=== PATIENT | female | born 1995 | race Caucasian/White ===

== ENCOUNTER 2017-03-18 17:28 | Emergency (ER) | payer OTHER ==
[~2017-03-18] VITALS: Ht 160 cm; Wt 62.6 kg
[~2017-03-18 17:28] MED LIST: INSU100I31 SQ; NOVO3I SC
[2017-03-18 17:30] VITALS: Ht 160 cm; Wt 62.6 kg
[2017-03-18 18:39] LABS: ADD UMIC YES; UR ASCORBIC ACID NEGATIVE (NEGATIVE); UR BACTERIA FEW /HPF (NONE SEEN); UR BILIRUBIN (Dip) NEGATIVE (NEGATIVE); UR BLOOD (Dip) 3+ mg/dL (NEGATIVE); UR CLARITY SLIGHTLY CLOUDY (CLEAR); UR COLOR YELLOW (YELLOW); UR GLUCOSE (Dip) 3+ mg/dL (NEGATIVE); UR KETONES (Dip) 2+ mg/dL (NEGATIVE); UR LEUKOCYTE ESTERASE (Dip) 1+ Leu/ul (NEGATIVE); UR MUCUS FEW /HPF (NONE SEEN); UR NITRITE (Dip) NEGATIVE (NEGATIVE); UR RBC > 182 /HPF (0-5); UR SPECIFIC GRAVITY (Dip) 1.037 (1.003-1.030); UR SQUAMOUS EPITHELIAL CELL FEW /HPF (FEW); UR TOTAL PROTEIN (Dip) 1+ mg/dl (NEGATIVE); UR UROBILINOGEN (Dip) NEGATIVE (NEGATIVE)
[2017-03-18 19:39] LABS: BASOPHILS % 0.2 % (0.0-2.0); EOSINOPHILS % 0.1 % (0.0-7.0); HEMOGLOBIN 13.4 g/dl (12.0-16.0); LYMPHOCYTES # 1.7 10^3/ul (0.8-2.9); MEAN CORPUSCULAR HEMOGLOBIN 28.8 pg (29.0-33.0); MEAN CORPUSCULAR HGB CONC 33.5 g/dl (32.0-37.0); MEAN PLATELET VOLUME 11.2 fl (7.4-10.4); MONOCYTE # 0.7 10^3/ul (0.3-0.9); MONOCYTES % 5.9 % (0.0-11.0); NEUTROPHIL # 9.6 10^3/ul (1.6-7.5); NEUTROPHILS % 79.4 % (39.0-77.0); PLATELET COUNT 294 10^3/UL (140-415); RED BLOOD COUNT 4.65 10^6/ul (4.20-5.40); RED CELL DISTRIBUTION WIDTH 12.1 % (11.5-14.5); WHITE BLOOD COUNT 12.1 10^3/ul (4.8-10.8)
--- NOTE | 2017-03-18 19:50 | ERD ---
ER Documentation Chief Complaint Date/Time DATE: 03/18/17 TIME: 19:48 Chief Complaint DYSURIA HPI Patient is a 21-year-old female who is diabetic type I who presents to the ED with dysuria and hematuria since this morning. Denies abdominal pain, nausea, vomiting or diarrhea. Patient uses an insulin pen and does not have a pump. She states that she gave herself insulin this morning. Patient did have lunch. Denies headache or dizziness. Her only complaint is her dysuria and urgency and hematuria. Denies back pain. Denies fever or chills. Patient does have a history of DKA, last episode was May 2016 and patient was admitted. No other complaints. ROS All systems reviewed and are negative except as per history of present illness. Medications Home Meds Active Scripts Nitrofurantoin Monohyd Macrocr* (Macrobid*) 100 Mg Capsr, 100 MG PO BID for 7 Days, CAP Prov:CLAUDE MENDEZ PA-C 03/18/17 Insulin Aspart* (Novolog Insulin Pen*) 100 Unit/Ml Soln, 12 UNIT SC WITH MEALS for 30 Days, #4 SYR 3 Refills Prov:OSCAR HUTCHINS MD 06/06/16 Insulin Degludec (Tresiba Flextouch U-100) 100 Unit/1 Ml Insuln.pen, 24 UNIT SQ QHS for 30 Days, #3 SYR 3 Refills Prov:OSCAR HUTCHINS MD 06/06/16 Allergies Allergies: Coded Allergies: No Known Allergy (Unverified , 03/18/17) PMhx/Soc History of Surgery: Yes (appendectomy at 10yo) Anesthesia Reaction: No Hx Neurological Disorder: No Hx Respiratory Disorders: No Hx Cardiac Disorders: No Hx Psychiatric Problems: No Hx Miscellaneous Medical Probl: No Hx Alcohol Use: Yes (3x per year) Hx Substance Use: Yes (marijuana) Hx Tobacco Use: No Smoking Status: Never smoker FmHx Family History: No coronary disease, No diabetes, No other Physical Exam Vitals Vital Signs Date Time Temp Pulse Resp B/P Pulse Ox O2 Delivery O2 Flow Rate FiO2 03/18/17 17:30 98.9 110 24 119/70 99 Physical Exam GENERAL: Well-developed, well-nourished female Appears in no acute distress. HEAD: Normocephalic, atraumatic. EYES: Pupils are equally reactive bilaterally. EOMs grossly intact. No conjunctival erythema. ENT: Moist mucous membranes. No uvula deviation. No kissing tonsils. No exudates. NECK: Supple. No lymphadenopathy or thyromegaly. No meningismus. negative kernig. negative brudinski. LUNG: Clear to auscultation bilaterally. No rhonchi, wheezing, rales or coarse breath sounds. HEART: Regular rate and rhythm. No murmurs, rubs or gallops. ABDOMEN: No scars, ecchymosis or rashes noted. Soft, nontender, and nondistended. Positive bowel sounds in all four quadrants. No rebound tenderness , no guarding. (-) McBurneys point tenderness. No CVA tenderness. BACK: No midline tenderness. Extremities: Equal pulses bilaterally. No peripheral clubbing, cyanosis or edema. No unilateral leg swelling. NEUROLOGIC: Alert and oriented. Moving all four extremities. 5/5 strength in all extremities. Normal speech. Steady gait. SKIN: Normal color. Warm and dry. No rashes or lesions. Capillary refill < 2 seconds Result Diagram: 03/18/17191403/18/171914 Results 24 hrs Laboratory Tests Test 03/18/17 16:10 03/18/17 19:07 03/18/17 19:15 Urine Color YELLOW Urine Clarity SLIGHTLY CLOUDY Urine pH 6.0 Urine Specific [place] 1.037 Urine Ketones 2+mg/dL Urine Nitrite NEGATIVEmg/dL Urine Bilirubin NEGATIVEmg/dL Urine Urobilinogen NEGATIVEmg/dL Urine Leukocyte Esterase 1+Mallika/ul Urine Microscopic RBC > 182/HPF Urine Microscopic WBC 45/HPF Urine Squamous Epithelial Cells FEW/HPF Urine Bacteria FEW/HPF Urine Mucus FEW/HPF Urine Hemoglobin 3+mg/dL Urine Glucose 3+mg/dL Urine Total Protein 1+mg/dl Bedside Glucose 322mg/dL White Blood Count 12.110^3/ul Red Blood Count 4.6510^6/ul Hemoglobin 13.4g/dl Hematocrit 40.0% Mean Corpuscular Volume 86.0fl Mean Corpuscular Hemoglobin 28.8pg Mean Corpuscular Hemoglobin Concent 33.5g/dl Red Cell Distribution Width 12.1% Platelet Count 50238^3/UL Mean Platelet Volume 11.2fl Neutrophils % 79.4% Lymphocytes % 14.0% Monocytes % 5.9% Eosinophils % 0.1% Basophils % 0.2% Nucleated Red Blood Cells % 0.0/100WBC Neutrophils # 9.610^3/ul Lymphocytes # 1.710^3/ul Monocytes # 0.710^3/ul Eosinophils # 0.010^3/ul Basophils # 0.010^3/ul Nucleated Red Blood Cells # 0.010^3/ul Sodium Level 136mmol/L Potassium Level 3.3mmol/L Chloride Level 102mmol/L Carbon Dioxide Level 25mmol/L Anion Gap 12 Blood Urea Nitrogen 11mg/dl Creatinine 0.47mg/dl Glucose Level 323mg/dl Calcium Level 9.1mg/dl Procedures/MDM ER COURSE: I kept the patient and/or family informed of laboratory and diagnostic imaging results throughout the emergency room course. MEDICAL DECISION MAKING: This is a 21 year old female who presents with dysuria and hematuria and urgency since this morning. Vital signs were reviewed. Patient is afebrile. Patient is not hypoxic. Patient is not toxic or ill-appearing. Her urinalysis shows leukocytes however she does have 2+ ketones and 3+ glucose. Therefore an Accu-Chek was done with a sugar of 322. CBC and BMP were ordered. CBC within normal limits BMP does not show signs of acidosis. Carbon dioxide and anion gap within normal limits. I consulted with my supervising physician Dr. harris agrees with my medical decision making and discharge plans. Patient is stable for outpatient therapy low suspicion for DKA, HON K. Patient is not toxic or ill-appearing. Patient does not have abdominal pain, nausea, vomiting. I will be treating the patient for cystitis with Macrobid outpatient. Low suspicion for pyelonephritis, septic or obstructive stone. Patient does not show signs of dehydration. DISCHARGE: At this time, patient is stable for discharge and outpatient management with no new complaints during the ER course. Patient was sent home with Macrobid patient will be discharged home with instructions to recheck for new or worsening symptoms such as fever, nausea, weakness, LOC and to follow up with primary care in the next 1-2 days. Patient was advised to return to the ER for any new or worsening symptoms. Plan was discussed and patient and/or family understands and agrees. Home instructions were given. Departure Diagnosis: Primary Impression: Cystitis Condition: Stable CLAUDE MENDEZ PA-C Mar 18, 2017 19:50
[2017-03-18] MEDS ORDERED: NITR-58 PO (20:01)
[2017-03-18 20:19] LABS: CALCIUM 9.1 mg/dl (8.4-10.2); CREATININE 0.47 mg/dl (0.44-1.00); POTASSIUM 3.3 mmol/L (3.5-5.1)
[2017-03-18 20:39] VITALS: BP 116/68; PULSE 66; RESP 22; TEMP 98.9
== END 2017-03-18 20:41 | disposition home or self-care (01) ==
LOC: FTE 17:28
DX: N30.90 Cystitis, unspecified without hematuria (principal); E10.9 Type 1 diabetes mellitus without complications; Z79.4 Long term (current) use of insulin
CPT/HCPCS: 36415; 80048; 81001; 82962; 85025; 99283

== ENCOUNTER 2017-05-24 17:35 | Emergency (ER) | payer OTHER ==
[~2017-05-24] VITALS: Wt 60.0 kg
[~2017-05-24 17:35] MED LIST changes: +NITR-58 PO
[2017-05-24] MEDS ORDERED: SOD CHLORIDE 0.9% 500 ML IV STA (21:11)
[2017-05-24 21:15] LABS: URINE BLOOD (Dip) POC Negative (NEGATIVE)
--- NOTE | 2017-05-24 21:20 | ERD ---
ER Documentation Chief Complaint Chief Complaint PALPITATIONS, SOB, ONSET 3 WEEKS, HX OF IDDM, NO CP HPI 21-year-old female presents for palpitations on and off for the last 2 weeks. She has a type I diabetic. Is also had shortness of breath but denies any chest pain. Has no history of cardiac problems. She is also somewhat lightheaded. ROS All systems reviewed and are negative except as per history of present illness. Medications Home Meds Active Scripts Alprazolam* (Xanax*) 0.25 Mg Tablet, 0.25 MG PO Q8H Y for ANXIETY, #7 TAB Prov:KIRILL RODRIGUEZ DO 05/25/17 Nitrofurantoin Monohyd Macrocr* (Macrobid*) 100 Mg Capsr, 100 MG PO BID for 7 Days, CAP Prov:CLAUDE MENDEZ PA-C 03/18/17 Insulin Aspart* (Novolog Insulin Pen*) 100 Unit/Ml Soln, 12 UNIT SC WITH MEALS for 30 Days, #4 SYR 3 Refills Prov:OSCAR HUTCHINS MD 06/06/16 Insulin Degludec (Tresiba Flextouch U-100) 100 Unit/1 Ml Insuln.pen, 24 UNIT SQ QHS for 30 Days, #3 SYR 3 Refills Prov:OSCAR HUTCHINS MD 06/06/16 Allergies Allergies: Coded Allergies: No Known Allergy (Unverified , 03/18/17) PMhx/Soc History of Surgery: Yes (appendectomy at 10yo) Anesthesia Reaction: No Hx Neurological Disorder: No Hx Respiratory Disorders: No Hx Cardiac Disorders: No Hx Psychiatric Problems: No Hx Miscellaneous Medical Probl: No Hx Alcohol Use: Yes (3x per year) Hx Substance Use: Yes (marijuana) Hx Tobacco Use: No Physical Exam Vitals Vital Signs Date Time Temp Pulse Resp B/P Pulse Ox O2 Delivery O2 Flow Rate FiO2 05/24/17 17:40 98.1 107 19 139/79 97 Physical Exam Const: [] Head: Atraumatic Eyes: Normal Conjunctiva ENT: Normal External Ears, Nose and Mouth. Neck: Full range of motion..~ No meningismus. Resp: Clear to auscultation bilaterally Cardio: Regular rate and rhythm, no murmurs Abd: Soft, non tender, non distended. Normal bowel sounds Skin: No petechiae or rashes Back: No midline or flank tenderness Ext: No cyanosis, or edema Neur: Awake and alert Psych: Normal Mood and Affect Result Diagram: 05/24/17211905/24/172119 Results 24 hrs Laboratory Tests Test 05/24/17 17:48 05/24/17 21:13 05/24/17 21:18 05/24/17 21:20 Bedside Glucose 284mg/dL Bedside Urine pH (LAB) 6.5 Bedside Urine Protein (LAB) Negative Bedside Urine Glucose (UA) 0.50% Bedside Urine Ketones (LAB) 3+ Bedside Urine Blood Negative Bedside Urine Nitrite (LAB) Negative Bedside Urine Leukocyte Esterase (L Trace Blood Gas Specimen Source Blood venous Arterial Blood Date Drawn 05/24/2017 9:20:12 PM Arterial Blood Gas Puncture Site VENOUS LINE Narciso Test N/A Venous Blood pH 7.366 Venous Blood pCO2 (Temp Corrected) 33.7mmHG Venous Blood pO2 (Temp Corrected) 48.2mmHG Venous Blood HCO3 18.9mmol/L Venous Blood Oxygen Saturation 83.7mmHG Venous Blood Base Excess -5.5mmol/L Venous Blood Total Hemoglobin 14.8g/dl Venous Blood Oxyhemoglobin 83.4% Venous Blood Methemoglobin 0.2% Carboxyhemoglobin 0.2% Blood Gas Temperature 37.0C Blood Gas Actual Respiration Rate 18 Blood Gas Modality ROOM AIR FiO2 21.0% Blood Gas Notified Whom MH Blood Gas Notified Time 05/24/2017 9:29:06 PM White Blood Count 8.510^3/ul Red Blood Count 4.5310^6/ul Hemoglobin 13.4g/dl Hematocrit 38.6% Mean Corpuscular Volume 85.2fl Mean Corpuscular Hemoglobin 29.6pg Mean Corpuscular Hemoglobin Concent 34.7g/dl Red Cell Distribution Width 13.4% Platelet Count 97878^3/UL Mean Platelet Volume 11.3fl Neutrophils % 53.6% Lymphocytes % 36.2% Monocytes % 8.6% Eosinophils % 0.7% Basophils % 0.5% Nucleated Red Blood Cells % 0.0/100WBC Neutrophils # 4.610^3/ul Lymphocytes # 3.110^3/ul Monocytes # 0.710^3/ul Eosinophils # 0.110^3/ul Basophils # 0.010^3/ul Nucleated Red Blood Cells # 0.010^3/ul Sodium Level 138mmol/L Potassium Level 3.4mmol/L Chloride Level 103mmol/L Carbon Dioxide Level 19mmol/L Anion Gap 19 Blood Urea Nitrogen 12mg/dl Creatinine 0.45mg/dl Glucose Level 264mg/dl Calcium Level 9.7mg/dl Total Bilirubin 0.2mg/dl Direct Bilirubin 0.00mg/dl Indirect Bilirubin 0.2mg/dl Aspartate Amino Transf (AST/SGOT) 15IU/L Alanine Aminotransferase (ALT/SGPT) 28IU/L Alkaline Phosphatase 131IU/L Troponin I < 0.012ng/ml Total Protein 6.3g/dl Albumin 3.9g/dl Globulin 2.40g/dl Albumin/Globulin Ratio 1.62 Test 05/24/17 21:24 05/24/17 22:00 05/25/17 00:44 Bedside Glucose 277mg/dL 242mg/dL Thyroid Stimulating Hormone (TSH) 1.460MIU/L Current Medications Medications (Trade) Dose Ordered Sig/[place] Route PRN Reason Start Time Stop Time Status Last Admin Dose Admin Sodium Chloride 500 ml @ 500 mls/hr Q1H STAT IV 05/24/17 21:11 05/24/17 22:10 DC 05/24/17 21:30 Sodium Chloride (NS) 1,000 ml @ 1,000 mls/hr Q1H ONCE IV 05/24/17 22:30 05/24/17 23:29 DC 05/24/17 22:35 Procedures/MDM Palpitations and diabetic hyperglycemia. No signs of cardiac ischemia. TSH is within normal limits no signs of hyperthyroid. No specific cause was found for the patient's palpitations that did resolve in the emergency room. Did have hyperglycemia. At first she was tachycardic and had the hypoglycemia workup was performed to look for DKA. Patient did not have any acidosis on a venous blood gas. Laboratories within normal limits. Patient was hydrated with normal saline. Her sugar decreased somewhat but she does plan to take insulin when going home. I am going to discharge her with a few Xanax tablets with anxiety being a diagnosis of exclusion for her to try. Also going to recommend that she call her primary care doctor to schedule an echocardiogram as an outpatient. EKG interpretation: Normal sinus rhythm rate of 89, normal axis, no ST or T- wave changes concerning for acute ischemia, nonspecific T-wave abnormality. Abnormal EKG. horse shoer interpretation: Initial sinus tachycardia followed by normal sinus rhythm no arrhythmias Chest x-ray interpretation: I see no acute process. I see no widened mediastinum, no infiltrates, no pulmonary edema, no fractures per Departure Diagnosis: Primary Impression: Palpitations Additional Impression: Type 1 diabetes mellitus with hyperglycemia Condition: KIRILL Marks DO May 24, 2017 21:20
[2017-05-24 21:29] LABS: MODE ROOM AIR; MetHgb Venous 0.2 %; Sample Type Blood venous; Venous COHb 0.2 %; Venous Fraction OxyHgb 83.4 %; Venous Total Hemglobin 14.8 g/dl
[2017-05-24 21:43] LABS: BASOPHILS % 0.5 % (0.0-2.0); EOSINOPHILS # 0.1 10^3/ul (0.0-0.5); EOSINOPHILS % 0.7 % (0.0-7.0); HEMATOCRIT 38.6 % (37.0-47.0); HEMOGLOBIN 13.4 g/dl (12.0-16.0); LYMPHOCYTES # 3.1 10^3/ul (0.8-2.9); LYMPHOCYTES % 36.2 % (15.0-51.0); MEAN CORPUSCULAR HEMOGLOBIN 29.6 pg (29.0-33.0); MEAN CORPUSCULAR HGB CONC 34.7 g/dl (32.0-37.0); MEAN CORPUSCULAR VOLUME 85.2 fl (82.0-101.0); MEAN PLATELET VOLUME 11.3 fl (7.4-10.4); MONOCYTE # 0.7 10^3/ul (0.3-0.9); MONOCYTES % 8.6 % (0.0-11.0); NEUTROPHIL # 4.6 10^3/ul (1.6-7.5); NEUTROPHILS % 53.6 % (39.0-77.0); PLATELET COUNT 246 10^3/UL (140-415); RED BLOOD COUNT 4.53 10^6/ul (4.20-5.40); RED CELL DISTRIBUTION WIDTH 13.4 % (11.5-14.5); WHITE BLOOD COUNT 8.5 10^3/ul (4.8-10.8)
--- NOTE | 2017-05-24 22:06 | RADRPT ---
PROCEDURE: XR Chest. CLINICAL INDICATION: Abdominal Pain TECHNIQUE: Single frontal view of the chest was obtained COMPARISON: Chest radiograph dated April 03, 2016. FINDINGS: The heart and mediastinum are within normal limits. The lungs are clear. There is no pleural effusion or pneumothorax. The osseous structures are unremarkable. IMPRESSION: 1. No acute cardiopulmonary disease. RPTAT:AAJJ Physician Juan M Date Time Electronically viewed and signed by Jessica Bridges Physician on 05/24/2017 22:05 /
[2017-05-24 22:09] LABS: ALANINE AMINOTRANSFERASE 28 IU/L (13-69); ALBUMIN 3.9 g/dl (3.3-4.9); ALBUMIN/GLOBULIN RATIO 1.62; ALKALINE PHOSPHATASE 131 IU/L (42-121); ANION GAP 19 (8-16); ASPARTATE AMINO TRANSFERASE 15 IU/L (15-46); BILIRUBIN,INDIRECT 0.2 mg/dl (0-1.1); BILIRUBIN,TOTAL 0.2 mg/dl (0.2-1.3); BLOOD UREA NITROGEN 12 mg/dl (7-20); CALCIUM 9.7 mg/dl (8.4-10.2); CARBON DIOXIDE 19 mmol/L (21-31); CHLORIDE 103 mmol/L (97-110); CREATININE 0.45 mg/dl (0.44-1.00); GLUCOSE 264 mg/dl (70-220); POTASSIUM 3.4 mmol/L (3.5-5.1); SODIUM 138 mmol/L (135-144); TOTAL PROTEIN 6.3 g/dl (6.1-8.1)
[2017-05-24] MEDS ORDERED: SOD CHLORIDE 0.9% 1,000 ML IV ONE (22:30)
[2017-05-24 22:32] LABS: TROPONIN-I < 0.012 ng/ml (0.00-0.12)
[2017-05-25] MEDS ORDERED: ALPR0.25 PO (00:42)
== END 2017-05-25 00:45 | disposition home or self-care (01) ==
LOC: E/R 17:35
DX: R00.2 Palpitations (principal); E10.65 Type 1 diabetes mellitus with hyperglycemia; Z79.4 Long term (current) use of insulin
CPT/HCPCS: 36415; 71010; 80053; 81003; 82803; 82962; 84443; 84484; 85025; 99285; J7030; J7040; 93005

== ENCOUNTER 2017-11-05 21:43 | Emergency (ER) | END 2017-11-06 00:34 | disposition home or self-care (01) ==

== ENCOUNTER 2018-04-16 09:40 | Emergency (ER) | END 2018-04-16 13:32 | disposition home or self-care (01) ==

== ENCOUNTER 2018-06-01 01:36 | Inpatient (IN) | END 2018-06-05 15:34 | disposition home or self-care (01) | DRG 639 ==

== ENCOUNTER 2018-12-02 11:49 | Inpatient (IN) | payer OTHER ==
[~2018-12-02] VITALS: Ht 170.2 cm; Wt 66.8 kg
[~2018-12-02 11:49] MED LIST changes: +ACET325T33 PO; +ALPR0.25 PO; +GUAI120S25 PO; -INSU100I31 SQ; +Insulin Glargine SC; -NITR-58 PO; +NPH,100V SC; +OXYM15SP34 NASAL
[2018-12-02] MEDS ORDERED: ONDANSETRON 4 MG INJ IV STA (12:12)
[2018-12-02] MEDS ORDERED: SOD CHLORIDE 0.9% 2,000 ML IV STA (12:12)
[2018-12-02] MEDS ORDERED: D10/0.45% NACL + KCL 30 MEQ 1,000 ML IV SCH (14:22)
[2018-12-02] MEDS ORDERED: NS + KCL 30 MEQ 1,000 ML IV SCH (14:22)
[2018-12-02] MEDS ORDERED: D10/0.45% NACL + KCL 40 MEQ 1,000 ML IV SCH (14:22)
[2018-12-02] MEDS ORDERED: NS + KCL 40 MEQ 1,000 ML IV SCH (14:22)
[2018-12-02] MEDS ORDERED: DEXTROSE 10%/0.45% NACL 1,000 ML IV SCH (14:22)
[2018-12-02] MEDS ORDERED: SOD CHLORIDE 0.9% 1,000 ML IV SCH (14:22)
[2018-12-02] MEDS ORDERED: KETOROLAC 15 MG INJ IV STA (14:25)
[2018-12-02] MEDS ORDERED: INSU100I12 SQ (14:27)
--- NOTE | 2018-12-02 14:27 | ERD ---
ER Documentation Chief Complaint Chief Complaint lower abdominal pain radiating to back w/nausea & vomitting HPI This is a 23-year-old woman with a history of diabetes mellitus type 1 complaining of diffuse abdominal cramping, nausea, generalized weakness, and elevated blood sugar x2 - 3 days. She states she has not used her insulin x2 weeks because "I did not want to". She denies fevers or chills, no chest pain or shortness of breath, no LOC, no blood per rectum or melena, no dysuria. ROS All systems reviewed and are negative except as per history of present illness. Medications Home Meds Reported Medications Insulin Glargine* (Lantus*) 100 Unit/Ml Soln, 42 UNIT SC QAM, #1 VIAL 12/02/18 Insulin Lispro (Humalog Kwikpen U-100) 100 Unit/1 Ml Insuln.pen, 0 SQ AC B, EA SLIDING SCALE 12/02/18 Discontinued Scripts Insulin Aspart* (Novolog Insulin Pen*) 100 Unit/Ml Soln, 15 UNIT SC WITH MEALS for 14 Days, #1 Prov:ERNESTO HAYES MD 06/05/18 Insulin NPH Human Isophane (Humulin N) 100 Unit/1 Ml Vial, 14 UNIT SC DAILY@20 for 14 Days, #14 VIAL Prov:ERNESTO HAYES MD 06/05/18 [Insulin Glargine] 100 UNITS/ML SOLN No Conflict Check, 32 UNITS SC DAILY@0800 for 14 Days, #14 Prov:ERNESTO HAYES MD 06/05/18 Oxymetazoline Hcl* (Afrin [place]*) 0.05% - 15 Ml [place], 2 SPRAY NASAL BID PRN for SORE THROAT for 1 Day, SPRAY otc Prov:ERNESTO HAYES MD 06/04/18 [id number] Hb* (Guaifenesin* DM Syrup) 120 Ml Syrup, 10 ML PO Q4H PRN for COUGH for 1 Day Prov:ERNESTO HAYES MD 06/04/18 Acetaminophen* (Tylenol*) 325 Mg Tablet, 650 MG PO Q6H PRN for MILD PAIN(1-3)OR ELEVATED TEMP for 1 Day, TAB Prov:ERNESTO HAYES MD 06/04/18 Alprazolam* (Xanax*) 0.25 Mg Tablet, 0.25 MG PO Q8H PRN for ANXIETY, #7 TAB Prov:KIRILL RODRIGUEZ DO 05/25/17 Allergies Allergies: Coded Allergies: No Known Allergy (Unverified , 12/02/18) PMhx/Soc Diabetes mellitus type 1, medication noncompliance History of Surgery: Yes (Appendectomy 11 years ago) Anesthesia Reaction: No Hx Neurological Disorder: No Hx Respiratory Disorders: No Hx Cardiac Disorders: No Hx Psychiatric Problems: No Hx Miscellaneous Medical Probl: No Hx Alcohol Use: No Hx Substance Use: No Hx Tobacco Use: No Smoking Status: Never smoker FmHx Family History: diabetes Physical Exam Vitals Vital Signs Date Temp Pulse Resp B/P (MAP) Pulse Ox O2 O2 Flow FiO2 Time Delivery Rate 12/02/18 98.2 86 18 121/79 100 Room Air 16:00 (93) 12/02/18 83 18 117/78 100 Room Air 15:00 (91) 12/02/18 87 18 129/85 100 Room Air 13:59 (100) 12/02/18 97.7 107 18 122/85 98 11:57 (97) Physical Exam Const: Well-developed well-nourished,, afebrile no acute distress, afebrile HEENT: [place] conjunctival, dry mucous membranes Resp: Clear to auscultation bilaterally Cardio: Regular rate and rhythm, no murmurs Abd: Soft, non tender, non distended. Normal bowel sounds Skin: No petechiae or rashes Back: No midline or flank tenderness Ext: No cyanosis, or edema, calves symmetrical Neur: Awake and alert x3, no focal deficits or facial asymmetry, pupils equal round reactive to light Psych: Normal Mood and Affect Result Diagram: 12/02/18 1224 12/02/18 1224 Results 24 hrs Laboratory Tests Test 12/02/18 12:24 12/02/18 12:26 12/02/18 12:38 12/02/18 15:11 White Blood Count 7.4 10^3/ul Red Blood Count 5.43 10^6/ul Hemoglobin 15.1 g/dl Hematocrit 47.0 % Mean Corpuscular 86.6 fl Volume Mean Corpuscular 27.8 pg Hemoglobin Mean Corpuscular 32.1 g/dl Hemoglobin Concent Red Cell 12.8 % Distribution Width Platelet Count 305 10^3/UL Mean Platelet 10.9 fl Volume Immature 0.900 % Granulocytes % Neutrophils % 73.0 % Lymphocytes % 17.0 % Monocytes % 7.9 % Eosinophils % 0.8 % Basophils % 0.4 % Nucleated Red 0.0 /100WBC Blood Cells % Immature 0.070 10^3/ul Granulocytes # Neutrophils # 5.4 10^3/ul Lymphocytes # 1.3 10^3/ul Monocytes # 0.6 10^3/ul Eosinophils # 0.1 10^3/ul Basophils # 0.0 10^3/ul Nucleated Red 0.0 10^3/ul Blood Cells # Urine Color YELLOW Urine Clarity SLIGHTLY CLOUDY Urine pH 5.0 Urine Specific 1.031 [place] Urine Ketones 2+ mg/dL Urine Nitrite NEGATIVE mg/dL Urine Bilirubin NEGATIVE mg/dL Urine Urobilinogen NEGATIVE mg/dL Urine Leukocyte NEGATIVE Mallika/ul Esterase Urine Microscopic > 182 /HPF RBC Urine Microscopic 8 /HPF WBC Urine Squamous FEW /HPF Epithelial Cells Urine Bacteria FEW /HPF Urine Mucus FEW /HPF Urine Hemoglobin 3+ mg/dL Urine Glucose 3+ mg/dL Urine Total 1+ mg/dl Protein Sodium Level 138 mmol/L Potassium Level 4.2 mmol/L Chloride Level 103 mmol/L Carbon Dioxide 11 mmol/L Level Anion Gap 24 Blood Urea 13 mg/dl Nitrogen Creatinine 0.50 mg/dl Est Glomerular > 60 mL/min Filtrat Rate mL/min Glucose Level 347 mg/dl Lactic Acid Level 1.3 mmol/L Calcium Level 9.4 mg/dl Total Bilirubin 0.8 mg/dl Direct Bilirubin 0.00 mg/dl Indirect Bilirubin 0.8 mg/dl Aspartate Amino 18 IU/L Transf (AST/SGOT) Alanine 12 IU/L Aminotransferase ( ALT/SGPT) Alkaline 140 IU/L Phosphatase Total Protein 8.3 g/dl Albumin 4.9 g/dl Globulin 3.40 g/dl Albumin/Globulin 1.44 Ratio Lipase 56 U/L POC Beta HCG, NEGATIVE Qualitative Bedside Glucose 351 mg/dL 207 mg/dL Test 12/02/18 16:22 12/02/18 16:28 Blood Gas Specimen Blood venous Source Arterial Blood 12/02/2018 3:10:45 Date Drawn PM Arterial Blood Gas OTHER Puncture Site Narciso Test ACCEPTAB Venous Blood pH 7.253 Venous Blood pCO2 30.5 mmHG (Temp Corrected) Venous Blood pO2 30.7 mmHG (Temp Corrected) Venous Blood HCO3 13.2 mmol/L Venous Blood 61.3 mmHG Oxygen Saturation Venous Blood Base -12.6 mmol/L Excess Venous Blood Total 13.7 g/dl Hemoglobin Venous Blood 60.7 % Oxyhemoglobin Venous Blood 0.3 % Methemoglobin Blood Gas A-a O2 82.5 mmHg Differential Carboxyhemoglobin 0.7 % Blood Gas 37.0 C Temperature Blood Gas Modality ROOM AIR FiO2 21.0 % Blood Gas Critical DCHIMA R.M. Value Read Back Blood Gas Notified MDA Whom Blood Gas Notified 12/02/2018 3:14:31 Time PM Bedside Glucose 204 mg/dL Current Medications Medications Dose Sig/[place] Start Time Status Last (Trade) Ordered Route PRN Stop Time Admin Dose Reason Admin Sodium 2,000 ml @ Q1H STAT 12/02/18 DC 12/02/18 Chloride 2,000 mls/hr IV 12:12 12/02/18 12:36 13:11 Ondansetron 4 mg ONCE STAT 12/02/18 DC 12/02/18 HCl (Zofran IV 12:12 12/02/18 12:35 Inj) 12:15 Potassium 1,000 ml @ Q0M IV 12/02/18 Chloride/Sodi 0 mls/hr 14:22 um Chloride Potassium 1,000 ml @ Q0M IV 12/02/18 Chloride/Dext 0 mls/hr 14:22 leonard/ Sod Cl Potassium 1,000 ml @ Q0M IV 12/02/18 12/02/18 Chloride/Sodi 0 mls/hr 14:22 15:29 um Chloride Potassium 1,000 ml @ Q0M IV 12/02/18 12/02/18 Chloride/Dext 0 mls/hr 14:22 15:29 leonard/ Sod Cl Sodium 1,000 ml @ Q0M IV 12/02/18 Chloride 0 mls/hr 14:22 1,000 ml @ Q0M IV 12/02/18 Dextrose/Sodi 0 mls/hr 14:22 um Chloride Insulin 101 ml @ ER DKA 12/02/18 12/02/18 Human 6.26 mls/hr PROTOCOL IV 15:00 15:28 Regular 100 unit/ Sodium Chloride Lactated 620 ml @ ONCE ONCE 12/02/18 DC 12/02/18 Ringer's 620 mls/hr IV 14:30 12/02/18 14:37 15:29 HYPOGLYCEM 12/02/18 Miscellaneous HYPOGLYCEMIA PROTOCOL PRN 14:30 TREATMENT XX Information .HYPOGLYCEMIA (* PROTOCOL Miscellaneous Pharmacy Order) Dextrose 50 ml Q15M PRN 12/02/18 (D50w IV 14:30 Syringe) .DECREASED GLUCOSE Dextrose 25 ml Q15M PRN 12/02/18 (D50w IV 14:30 Syringe) .DECREASED GLUCOSE Ketorolac 15 mg ONCE STAT 12/02/18 DC 12/02/18 Tromethamine IV 14:25 12/02/18 15:42 (Toradol) 14:28 IV Flush 3 ml PER 12/02/18 (NS 3 ml) PROTOCOL IV 15:00 Ondansetron 4 mg Q6H PRN 12/02/18 HCl (Zofran IV 15:00 Inj) NAUSEA/VOMITI NG 650 mg Q6H PRN 12/02/18 Acetaminophen PO .PAIN 1-3 15:00 (Tylenol OR TEMP Tab) 650 mg Q6H PRN 12/02/18 Acetaminophen MI .PAIN 1-3 15:00 (Tylenol OR TEMP Supp) 1 tab Q6H PRN 12/02/18 Acetaminophen PO .MOD PAIN 15:00 / 4-6 Hydrocodone Bitart ([place] (5/325)) 2 tab Q6H PRN 12/02/18 Acetaminophen PO .SEVERE 15:00 / PAIN 7-10 Hydrocodone Bitart ([place] (5/325)) Morphine 2 mg Q4H PRN 12/02/18 Sulfate IV .SEVERE 15:00 (morphine) PAIN 7-10 Docusate 100 mg Q12H PRN 12/02/18 Sodium PO 15:00 (Colace) .CONSTIPATION Magnesium 30 ml DAILY PRN 12/02/18 Hydroxide PO 15:00 (Milk Of Mag) .CONSTIPATION Bisacodyl 10 mg DAILY PRN 12/02/18 (Dulcolax [place] 15:00 Supp) .CONSTIPATION Procedures/MDM IV line was established 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 Patient was afebrile I administered 2 L normal saline IV for dehydration, Toradol 15 mg IV x1 for complaints of backache, and placed her on DKA protocol with insulin drip VBG revealed acidemia with a pH of 7.25, CBC was unremarkable, electrolytes revealed mild dehydration and hyperglycemia 347 with a bicarb of 11 consistent with metabolic acidosis, liver function tests are unremarkable, urinalysis was equivocal and her last urine culture was positive for Eva so I will defer antibiotic therapy to cultures. Critical Care: Time: 43 minutes, this was time separate from other billable procedures. Treatments/Evaluations: Close monitoring and treatment of unstable vital signs, cardiorespiratory, and neurologic status, while maintaining tight balance of fluid, respiratory, and cardiac interventions. Patient will be admitted to ICU for continued hydration and DKA management Departure Diagnosis: Primary Impression: DKA (diabetic ketoacidoses) Diabetes mellitus type: type 1 Diabetes mellitus complication detail: without coma Qualified Codes: E10.10 - Type 1 diabetes mellitus with ketoacidosis without coma Additional Impressions: Type 1 diabetes mellitus with hyperglycemia Acute dehydration Condition: SHAY Borrego MD Dec 02, 2018 14:26
[2018-12-02] MEDS ORDERED: LANT3I SC (14:28)
[2018-12-02] MEDS ORDERED: DEXTROSE 50% 50 ML SYRINGE IV PRN ×4 (14:30→19:30)
[2018-12-02] MEDS ORDERED: LACTATED RINGER S IV ONE (14:30)
[2018-12-02] MEDS ORDERED: INSULIN REGULAR, HUMAN 100 UNIT in SOD CHLORIDE 0.9% 100 ML IV SCH ×2 (15:00)
[2018-12-02] MEDS ORDERED: ACETAMINOPHEN 650 MG SUPP PR PRN (15:00)
[2018-12-02] MEDS ORDERED: MAGNESIUM HYDROXIDE 30ML CUP PO PRN (15:00)
[2018-12-02] MEDS ORDERED: BISACODYL 10 MG SUPP PR PRN (15:00)
[2018-12-02] MEDS ORDERED: ONDANSETRON 4 MG INJ IV PRN (15:00)
[2018-12-02] MEDS ORDERED: DOCUSATE SODIUM 100 MG CAP PO PRN (15:00)
[2018-12-02] MEDS ORDERED: ACETAMINOPHEN 325 MG TAB PO PRN (15:00)
[2018-12-02] MEDS ORDERED: morphine 2 MG INJ IV PRN (15:00)
[2018-12-02] MEDS ORDERED: NACL 0.9% 3 ML SYG IV SCH (15:00)
[2018-12-02] MEDS ORDERED: HYDROCODONE/APAP (5/325) TAB PO PRN ×2 (15:00)
--- NOTE | 2018-12-02 15:41 | HP ---
Date/Time of Note Date/Time of Note DATE: 12/02/18 TIME: 15:24 Assessment/Plan VTE Prophylaxis Pharmacological prophylaxis: heparin Lines/Catheters IV Catheter Type (from Nrsg): Saline Lock Assessment/Plan Hospital Course Assessment and plan 1. Diabetic ketoacidosis. - Patient started on DKA protocol. - Continue IV hydration. - Plan to transfer to ICU and be placed on insulin drip. - Patient's companion will be notified. -Will get nursing educator. 2. Medical noncompliance. - Patient advised by consequences of medical noncompliance. 3. Abdominal pain with nausea and vomiting. - Likely secondary to #1. - Resolved at present. Will monitor for now. Discussed plan of care with Result Diagram: 12/02/18 1224 12/02/18 1224 Results 24hrs Laboratory Tests Test 12/02/18 12:24 12/02/18 12:26 12/02/18 12:38 12/02/18 15:11 White Blood Count 7.4 # Red Blood Count 5.43 #H Hemoglobin 15.1 # Hematocrit 47.0 # Mean Corpuscular 86.6 Volume Mean Corpuscular 27.8 L Hemoglobin Mean Corpuscular 32.1 Hemoglobin Concent Red Cell 12.8 Distribution Width Platelet Count 305 # Mean Platelet 10.9 H Volume Immature 0.900 H Granulocytes % Neutrophils % 73.0 Lymphocytes % 17.0 Monocytes % 7.9 Eosinophils % 0.8 Basophils % 0.4 Nucleated Red 0.0 Blood Cells % Immature 0.070 H Granulocytes # Neutrophils # 5.4 Lymphocytes # 1.3 Monocytes # 0.6 Eosinophils # 0.1 Basophils # 0.0 Nucleated Red 0.0 Blood Cells # Urine Color YELLOW Urine Clarity SLIGHTLY CLOUDY A Urine pH 5.0 Urine Specific 1.031 H [place] Urine Ketones 2+ H Urine Nitrite NEGATIVE Urine Bilirubin NEGATIVE Urine Urobilinogen NEGATIVE Urine Leukocyte NEGATIVE Esterase Urine Microscopic > 182 H RBC Urine Microscopic 8 H WBC Urine Squamous FEW Epithelial Cells Urine Bacteria FEW A Urine Mucus FEW A Urine Hemoglobin 3+ H Urine Glucose 3+ H Urine Total 1+ H Protein Sodium Level 138 Potassium Level 4.2 Chloride Level 103 Carbon Dioxide 11 L Level Anion Gap 24 H Blood Urea 13 Nitrogen Creatinine 0.50 Est Glomerular > 60 Filtrat Rate mL/min Glucose Level 347 H Lactic Acid Level 1.3 Calcium Level 9.4 Total Bilirubin 0.8 Direct Bilirubin 0.00 Indirect Bilirubin 0.8 Aspartate Amino 18 Transf (AST/SGOT) Alanine 12 L Aminotransferase ( ALT/SGPT) Alkaline 140 H Phosphatase Total Protein 8.3 H Albumin 4.9 Globulin 3.40 H Albumin/Globulin 1.44 Ratio Lipase 56 POC Beta HCG, NEGATIVE Qualitative Bedside Glucose 351 H 207 HPI/ROS Admit Date/Time Admit Date/Time Hx of Present Illness This is a 23 year old female with history of type 1 diabetes and medical noncompliance who came to [facility] due to increased generalized weakness with abdominal pain and nausea likely secondary to her noncompliance with insulin regimen resulting in DKA. Patient reported that she been noncompliant with her medications because she would forget at times and also she did not want to take it. She states that she follows up with her companion Dr. Pena. She also reported having some nausea but no vomiting. Due to her symptoms she came to the hospital for further evaluation. She was found to have a glucose as high as 351. Urinalysis also showed ketones. She was placed on insulin with good response. She does report that since being in the ER her nausea has subsided and she reports that her abdominal pain has also resolved. She denies any fevers cough or dysuria or any other associated symptoms. We will evaluate her for the aformentioned issues. ROS 12 point review of systems obtained entirely negative except as mentioned in the history of present illness PMH/Family/Social Past Medical History Medical/surgical history 1. Type 1 diabetes 2. Medical noncompliance Medications Current Medications Potassium Chloride/Sodium Chloride 1,000 ml @ 0 mls/hr Q0M IV ; Start 12/02/18 at 14:22 Potassium Chloride/Dextrose/ Sod Cl 1,000 ml @ 0 mls/hr Q0M IV ; Start 12/02/18 at 14:22 Potassium Chloride/Sodium Chloride 1,000 ml @ 0 mls/hr Q0M IV ; Start 12/02/18 at 14:22 Potassium Chloride/Dextrose/ Sod Cl 1,000 ml @ 0 mls/hr Q0M IV ; Start 12/02/18 at 14:22 Sodium Chloride 1,000 ml @ 0 mls/hr Q0M IV ; Start 12/02/18 at 14:22 Dextrose/Sodium Chloride 1,000 ml @ 0 mls/hr Q0M IV ; Start 12/02/18 at 14:22 Insulin Human Regular 100 unit/ Sodium Chloride 101 ml @ 6.26 mls/hr ER DKA PROTOCOL IV ; Start 12/02/18 at 15:00 Lactated Ringer's 620 ml @ 620 mls/hr ONCE ONCE IV Last administered on 12/02/18at 14:37; Admin Dose 620 MLS/HR; Start 12/02/18 at 14:30; Stop 12/02/18 at 15:29 Miscellaneous Information (* Miscellaneous Pharmacy Order) HYPOGLYCEMIA TREATMENT HYPOGLYCEM PROTOCOL PRN XX .HYPOGLYCEMIA PROTOCOL; Start 12/02/18 at 14:30 Dextrose (D50w Syringe) 50 ml Q15M PRN IV .DECREASED GLUCOSE; Start 12/02/18 at 14:30 Dextrose (D50w Syringe) 25 ml Q15M PRN IV .DECREASED GLUCOSE; Start 12/02/18 at 14:30 IV Flush (NS 3 ml) 3 ml PER PROTOCOL IV ; Start 12/02/18 at 15:00 Ondansetron HCl (Zofran Inj) 4 mg Q6H PRN IV NAUSEA/VOMITING; Start 12/02/18 at 15:00 Acetaminophen (Tylenol Tab) 650 mg Q6H PRN PO .PAIN 1-3 OR TEMP; Start 12/02/18 at 15:00 Acetaminophen (Tylenol Supp) 650 mg Q6H PRN AK .PAIN 1-3 OR TEMP; Start 12/02/18 at 15:00 Acetaminophen/ Hydrocodone Bitart (Gilead (5/325)) 1 tab Q6H PRN PO .MOD PAIN 4- 6; Start 12/02/18 at 15:00 Acetaminophen/ Hydrocodone Bitart (Gilead (5/325)) 2 tab Q6H PRN PO .SEVERE PAIN 7-10; Start 12/02/18 at 15:00 Morphine Sulfate (morphine) 2 mg Q4H PRN IV .SEVERE PAIN 7-10; Start 12/02/18 at 15:00 Docusate Sodium (Colace) 100 mg Q12H PRN PO .CONSTIPATION; Start 12/02/18 at 15:00 Magnesium Hydroxide (Milk Of Mag) 30 ml DAILY PRN PO .CONSTIPATION; Start 12/02/18 at 15:00 Bisacodyl (Dulcolax Supp) 10 mg DAILY PRN AK .CONSTIPATION; Start 12/02/18 at 15:00 Coded Allergies: No Known Allergy (Unverified , 12/02/18) Past Surgical History Past Surgical Hx: no surgical history, appendectomy Family History Significant Family History: hypertension Social History Alcohol Use: none Smoking Status: Never smoker Drug Use: none Exam/Review of Systems Vital Signs Vitals Vital Signs Date Temp Pulse Resp B/P (MAP) Pulse Ox O2 O2 Flow FiO2 Time Delivery Rate 12/02/18 87 18 129/85 100 Room Air 13:59 (100) 12/02/18 97.7 11:57 Exam Constitutional: alert, oriented Psych: nl mood/affect Head: normocephalic Eyes: nl conjunctiva Neck: supple, non-tender Respiratory: clear to auscultation, normal air movement Cardiovascular: regular rate and rhythm Gastrointestinal: soft Musculoskeletal: nl extremities to inspection, nl gait and stance Extremities: normal pulses Neurological: ABLE SEAMAN II-XII intact, nl mental status, nl speech Skin: nl DAVID Lockett NP Dec 02, 2018 15:37
[2018-12-02] MEDS ORDERED: GLUCOSE GEL 15 GRAM TUBE BUCCAL PRN (19:30)
[2018-12-02] MEDS ORDERED: GLUCOSE GEL 15 GRAM TUBE PO PRN ×2 (19:30)
[2018-12-02] MEDS ORDERED: GLUCAGON 1 MG INJ IM PRN (19:30)
[2018-12-02] MEDS ORDERED: INSULIN GLARGINE [LANTus] (100 UNITS/ML) SYG SC SCH (20:00)
[2018-12-02] MEDS ORDERED: MAGNESIUM SULFATE 1 GM/D5W 100 ML IVPB ONE (21:30)
[2018-12-02] MEDS ORDERED: POTASSIUM PHOSPHATE 40 MEQ in SOD CHLORIDE 0.9% 250 ML IVPB ONE (22:30)
[2018-12-02] MEDS: INSULIN ASPART [NOVOLOG] 3 ML PEN SC SCH (22:46)
[2018-12-03] MEDS ORDERED: ACCU-CHEK XX SCH (02:00)
[2018-12-03 03:12] VITALS: PULSE 74
[2018-12-03] MEDS: SOD CHLORIDE 0.9% 1,000 ML IV SCH ×2 (03:37→13:04)
[2018-12-03 03:52] VITALS: Ht 170.2 cm; Wt 66.8 kg
[2018-12-03 04:00] VITALS: BP 117/76; PULSE 75; PULSE 79; RESP 18
[2018-12-03 07:33] VITALS: BP_SYST 103; BP_SYST 96; BP_DIAS 53; PULSE 86; PULSE 87; RESP 18; RESP 20
[2018-12-03] MEDS: INSULIN ASPART [NOVOLOG] 3 ML PEN SC SCH ×4 (07:59→12:12)
[2018-12-03 08:00] VITALS: PULSE 84
[2018-12-03 11:35] VITALS: BP 123/84; PULSE 80; RESP 18
[2018-12-03] MEDS ORDERED: INSU100I33 SC (11:36)
[2018-12-03] MEDS ORDERED: INSU200I SQ (11:36)
--- NOTE | 2018-12-03 11:38 | PDOCDIS ---
Discharge Instructions DIAGNOSIS Discharge Diagnosis 1. Diabetic ketoacidosis. 2. Medical noncompliance. 3. Abdominal pain with nausea and vomiting. CONDITION [id number] Patient Condition: [id number] Stable HOME CARE INSTRUCTIONS: [id number] Special Diet: [id number] carbohydrate controlled FOLLOW UP/APPOINTMENTS Follow-up Plan 1. Follow up with Dr. Charles Pena in one week DAVID VELOZ NP Dec 03, 2018 11:38
[2018-12-03 12:00] VITALS: PULSE 76
--- NOTE | 2018-12-03 14:07 | DS ---
Date/Time of Note Date/Time of Note DATE: 12/03/18 TIME: 14:04 Discharge Summary Admission/Discharge Info Admit Date/Time Dec 02, 2018 at 14:40 Discharge Date/Time Discharge Diagnosis 1. Diabetic ketoacidosis. 2. Medical noncompliance. 3. Abdominal pain with nausea and vomiting. Patient Condition: Stable Hospital Course This is a 23 year old female with history of type 1 diabetes and medical noncompliance who came to [facility] due to increased gene ralized weakness with abdominal pain and nausea likely secondary to her noncompliance with insulin regimen resulting in DKA. Patient reported that she been noncompliant with her medications because she would forget at times and also she did not want to take it. She states that she follows up with her granite installer Dr. Pena. She also reported having some nausea but no vomiti ng. Due to her symptoms she came to the hospital for further evaluation. She was found to have a glucose as high as 351. Urinalysis also showed ketones. She was placed on IV insulin with good response. Patient was advised about medical complaints. We did stabilize her blood glucose with insulin regimen. She does state that she will follow-up with her granite installer upon discharge. She was educated about consequences of medical noncompliance with her diabetes. During her stay she did improve. The plan of care was discussed with the patient and patient verbalized understanding. On the day of discharge patient was in stable condition Discussed plan of care with Dr. Grande [facility] Active Scripts Insulin Lispro (Humalog Kwikpen) 200 Unit/1 Ml Insuln.pen, 6 UNIT SQ AC MEALS, #1 EA Prov:DAVID VELOZ LOGGER ALL ROUND 12/03/18 Insulin Glargine,Hum.rec.anlog (Basaglar Kwikpen U-100) 100 Unit/1 Ml Insuln.pen, 20 UNIT SC QAM, #1 EA Prov:DAVID VELOZ [employer]GGER [employer] ROUND 12/03/18 Discontinued Reported Medications Insulin Glargine* (Lantus*) 100 Unit/Ml Soln, 42 UNIT SC QAM, #1 VIAL 12/02/18 Insulin Lispro (Humalog Kwikpen U-100) 100 Unit/1 Ml Insuln.pen, 0 SQ AC B, EA SLIDING SCALE 12/02/18 Discontinued Scripts Insulin Aspart* (Novolog Insulin Pen*) 100 Unit/Ml Soln, 15 UNIT SC WITH MEALS for 14 Days, #1 Prov:ERNESTO HAYES MD 06/05/18 Insulin NPH Human Isophane (Humulin N) 100 Unit/1 Ml Vial, 14 UNIT SC DAILY@20 for 14 Days, #14 VIAL Prov:ERNESTO HAYES MD 06/05/18 [Insulin Glargine] 100 UNITS/ML SOLN No Conflict Check, 32 UNITS SC DAILY@0800 for 14 Days, #14 Prov:ERNESTO HAYES MD 06/05/18 Oxymetazoline Hcl* (Afrin [place]*) 0.05% - 15 Ml [place], 2 SPRAY NASAL BID PRN for SORE THROAT for 1 Day, SPRAY otc Prov:ERNESTO HAYES MD 06/04/18 Lunmuauukfc-Z-Zpxutyhqcg Hb* (Guaifenesin* DM Syrup) 120 Ml Syrup, 10 ML PO Q4H PRN for COUGH for 1 Day Prov:ERNESTO HAYES MD 06/04/18 Acetaminophen* (Tylenol*) 325 Mg Tablet, 650 MG PO Q6H PRN for MILD PAIN(1-3)OR ELEVATED TEMP for 1 Day, TAB Prov:ERNESTO HAYES MD 06/04/18 Alprazolam* (Xanax*) 0.25 Mg Tablet, 0.25 MG PO Q8H PRN for ANXIETY, #7 TAB Prov:KIRILL RODRIGUEZ DO 05/25/17 Follow-up Plan 1. Follow up with Dr. Charles Pena in one week Primary Care Provider Care Physician No Primary Time spent on discharge: > 30 minutes Pending Labs Laboratory Tests Test 12/02/18 15:11 12/02/18 16:22 12/02/18 16:28 12/02/18 17:07 Bedside 207 204 Glucose mg/dL (70-220) mg/dL (70-220) Blood Gas Blood venous Specimen Source Arterial Blood 12/02/2018 3:10: Date Drawn 45 PM Arterial Blood OTHER Gas Puncture Site Narciso Test ACCEPTAB Venous Blood 7.253 (7.330-7 pH .430) Venous Blood 30.5 pCO2 mmHG (35-45) (Temp Corrected ) Venous Blood 30.7 pO2 mmHG (25.0-30. (Temp Corrected 0) ) Venous Blood 13.2 HCO3 mmol/L (22.0-2 9.0) Venous Blood 61.3 Oxygen mmHG (55.0-75. Saturation 0) Venous Blood -12.6 Base Excess mmol/L (-5.0-5 .0) Venous Blood 13.7 g/dl Total Hemoglobin Venous Blood 60.7 % Oxyhemoglobin Venous Blood 0.3 % Methemoglobin Blood Gas A-a 82.5 mmHg O2 Differential Carboxyhemoglob 0.7 % in Blood Gas 37.0 C Temperature Blood Gas ROOM AIR Modality FiO2 21.0 % Blood Gas DCHIMA R.M. Critical Value Read Back Blood Gas MDA Notified Whom Blood Gas 12/02/2018 3:14: Notified Time 31 PM Sodium Level 136 mmol/L (135-14 4) Potassium 3.8 Level mmol/L (3.5-5. 1) Chloride Level 110 mmol/L (97-110 ) Carbon Dioxide 17 Level mmol/L (21-31) Anion Gap 9 (5-13) Blood Urea 9 mg/dl (7-20) Nitrogen Creatinine 0.35 mg/dl (0.44-1. 00) Est Glomerular > 60 Filtrat mL/min (>60) Rate mL/min Glucose Level 198 mg/dl (70-220) Lactic Acid 1.0 Level mmol/L (0.5-2. 0) Calcium Level 7.9 mg/dl (8.4-10. 2) Phosphorus 1.7 Level mg/dl (2.5-4.9 ) Magnesium 1.7 Level mg/dl (1.7-2.5 ) Test 12/02/18 17:26 12/02/18 18:22 12/02/18 19:21 12/02/18 19:25 Bedside 194 156 206 Glucose mg/dL (70-220) mg/dL (70-220) mg/dL (70-220) Blood Gas Blood venous Specimen Source Arterial Blood 12/02/2018 7:30: Date Drawn 36 PM Arterial Blood VENOUS LINE Gas Puncture Site Narciso Test N/A Venous Blood 7.281 (7.330-7 pH .430) Venous Blood 41.9 pCO2 mmHG (35-45) (Temp Corrected ) Venous Blood 20.0 pO2 mmHG (25.0-30. (Temp Corrected 0) ) Venous Blood 19.3 HCO3 mmol/L (22.0-2 9.0) Venous Blood 36.0 Oxygen mmHG (55.0-75. Saturation 0) Venous Blood -7.1 Base Excess mmol/L (-5.0-5 .0) Venous Blood 13.2 g/dl Total Hemoglobin Venous Blood 35.7 % Oxyhemoglobin Venous Blood 0.6 % Methemoglobin Carboxyhemoglob 0.3 % in Blood Gas 37.0 C Temperature Blood Gas ROOM AIR Modality FiO2 21.0 % Blood Gas NR Notified Whom Blood Gas 12/02/2018 7:37: Notified Time 19 PM Sodium Level 135 mmol/L (135-14 4) Potassium 3.7 Level mmol/L (3.5-5. 1) Chloride Level 110 mmol/L (97-110 ) Carbon Dioxide 18 Level mmol/L (21-31) Anion Gap 7 (5-13) Blood Urea 8 mg/dl (7-20) Nitrogen Creatinine 0.33 mg/dl (0.44-1. 00) Est Glomerular > 60 Filtrat mL/min (>60) Rate mL/min Glucose Level 204 mg/dl (70-220) Lactic Acid 1.0 Level mmol/L (0.5-2. 0) Calcium Level 8.0 mg/dl (8.4-10. 2) Phosphorus 1.8 Level mg/dl (2.5-4.9 ) Magnesium 1.6 Level mg/dl (1.7-2.5 ) Test 12/02/18 20:20 12/02/18 21:25 12/02/18 22:18 12/02/18 23:15 Bedside 238 252 289 314 Glucose mg/dL (70-220) mg/dL (70-220) mg/dL (70-220) mg/dL (70-220) Test 12/03/18 00:54 12/03/18 02:22 12/03/18 03:01 12/03/18 05:12 Bedside 159 142 Glucose mg/dL (70-220) mg/dL (70-220) Blood Gas Blood venous Specimen Source Arterial Blood 12/03/2018 2:00: Date Drawn 02 AM Arterial Blood VENOUS LINE Gas Puncture Site Narciso Test N/A Venous Blood 7.340 (7.330-7 pH .430) Venous Blood 40.3 pCO2 mmHG (35-45) (Temp Corrected ) Venous Blood 21.6 pO2 mmHG (25.0-30. (Temp Corrected 0) ) Venous Blood 21.3 HCO3 mmol/L (22.0-2 9.0) Venous Blood 40.0 Oxygen mmHG (55.0-75. Saturation 0) Venous Blood -4.2 Base Excess mmol/L (-5.0-5 .0) Venous Blood 13.3 g/dl Total Hemoglobin Venous Blood 39.8 % Oxyhemoglobin Venous Blood 0.3 % Methemoglobin Carboxyhemoglob 0.3 % in Blood Gas 37.0 C Temperature Blood Gas ROOM AIR Modality FiO2 21.0 % Blood Gas MR Notified Whom Blood Gas 12/03/2018 2:12: Notified Time 40 AM White Blood 5.9 Count 10^3/ul (4.8-1 0.8) Red Blood 4.38 Count 10^6/ul (4.20- 5.40) Hemoglobin 12.1 g/dl (12.0-16. 0) Hematocrit 36.7 % (37.0-47.0) Mean 83.8 Corpuscular fl (82.0-101.0 Volume ) Mean 27.6 Corpuscular pg (29.0-33.0) Hemoglobin Mean 33.0 Corpuscular g/dl (32.0-37. Hemoglobin Conc 0) ent Red Cell 13.1 Distribution % (11.5-14.5) Width Platelet Count 266 10^3/UL (140-4 15) Mean Platelet 11.1 Volume fl (7.4-10.4) Immature 0.300 Granulocytes % % (0.001-0.429 ) Neutrophils % 52.1 % (39.0-77.0) Lymphocytes % 32.9 % (15.0-51.0) Monocytes % 12.8 % (0.0-11.0) Eosinophils % 1.4 % (0.0-7.0) Basophils % 0.5 % (0.0-2.0) Nucleated Red 0.0 Blood Cells % /100WBC (0.0-0 .0) Immature 0.020 Granulocytes # 10^3/ul (0.0-0 .031) Neutrophils # 3.1 10^3/ul (1.6-7 .5) Lymphocytes # 2.0 10^3/ul (0.8-2 .9) Monocytes # 0.8 10^3/ul (0.3-0 .9) Eosinophils # 0.1 10^3/ul (0.0-0 .5) Basophils # 0.0 10^3/ul (0.0-0 .1) Nucleated Red 0.0 Blood Cells # 10^3/ul (0.0-0 .0) Sodium Level 140 mmol/L (135-14 4) Potassium 3.4 Level mmol/L (3.5-5. 1) Chloride Level 112 mmol/L (97-110 ) Carbon Dioxide 20 Level mmol/L (21-31) Anion Gap 8 (5-13) Blood Urea 8 mg/dl (7-20) Nitrogen Creatinine 0.33 mg/dl (0.44-1. 00) Est Glomerular > 60 Filtrat mL/min (>60) Rate mL/min Glucose Level 50 mg/dl (70-220) Hemoglobin A1c 11.0 % (0-5.9) Calcium Level 8.3 mg/dl (8.4-10. 2) Total 0.4 Bilirubin mg/dl (0.2-1.3 ) Direct 0.00 Bilirubin mg/dl (0.00-0. 20) Indirect 0.4 Bilirubin mg/dl (0-1.1) Aspartate Amino 18 Transf (AST/SGO IU/L (15-46) T) Alanine 18 Aminotransferas IU/L (13-69) e (ALT/SGPT) Alkaline 71 Phosphatase IU/L (42-121) Total Protein 5.7 g/dl (6.1-8.1) Albumin 3.3 g/dl (3.3-4.9) Globulin 2.40 g/dl (1.3-3.2) Albumin/Globuli 1.37 n Ratio Triglycerides 57 Level mg/dl (0-149) Cholesterol 88 Level mg/dl (100-200 ) LDL 42 mg/dl Cholesterol, Calculated HDL 35 Cholesterol mg/dl (33-83) Cholesterol/HDL 2.5 RATIO Ratio Thyroid 0.390 Stimulating MIU/L (0.465-4 Hormone (TSH) .680) Free Thyroxine 3.44 Index ug/ml (0.65-3. 89) Thyroxine (T4) 8.5 ug/dl (5.5-11. 0) Triiodothyronin 40.5 e (T3) Uptake % (23.5-40.5) Test 12/03/18 06:47 12/03/18 07:18 12/03/18 07:42 12/03/18 12:02 Bedside 51 96 137 209 Glucose mg/dL (70-220) mg/dL (70-220) mg/dL (70-220) mg/dL (70-220) DAVID VELOZ NP Dec 03, 2018 14:07
== END 2018-12-03 15:35 | disposition home or self-care (01) | DRG 639 ==
LOC: FTE 11:49 → 6WM 14:40 → EDBEDREQSVC 12-03 00:28
PROVIDERS: ADMIT Internal Medicine; ATTEND Internal Medicine
DX: E10.10 Type 1 diabetes mellitus with ketoacidosis without coma (principal); E86.0 Dehydration; Z91.19 Patient's noncompliance with other medical treatment and regimen; R10.9 Unspecified abdominal pain; R11.2 Nausea with vomiting, unspecified; Z79.4 Long term (current) use of insulin
CPT/HCPCS: 36415; 80048; 80053; 80061; 81001; 81025; 82803; 82962; 83036; 83605; 83690; 83735; 84100; 84436; 84443; 84479; 85025; 96374; J1815; J1885; J2405; J3475; J3480; J7030; J7050; J7120